=== PATIENT | female | born 1950 | race African-American/Black ===

== ENCOUNTER 2018-04-29 09:51 | Day surgery (SDC) | payer OTHER ==
[2018-03-31 15:01] VITALS: BMI 25.7
[2018-04-29 11:21] VITALS: TEMP 98
[2018-04-29 11:46] VITALS: PULSE 62
[2018-04-29 15:09] VITALS: BP 132/66
== END 2018-04-29 12:30 | disposition home or self-care (01) ==
LOC: JASU-ENDO 09:51
PROVIDERS: ATTEND Internal Medicine Gastroenterology
PROC: 0DJD8ZZ Inspection of Lower Intestinal Tract, Via Natural or Artificial Opening Endoscopic (ICD-10-PCS; principal; 2018-04-29 10:30)
DX: D64.9 Anemia, unspecified (principal); K64.8 Other hemorrhoids

== ENCOUNTER 2018-05-06 10:44 | Day surgery (SDC) | payer OTHER ==
[2018-05-06 11:44] VITALS: BMI 23.0
[2018-05-06 13:01] VITALS: TEMP 97.6
[2018-05-06 14:41] VITALS: BP 137/72; PULSE 65
--- NOTE | 2018-05-08 12:37 | PATH ---
Surgical Pathology Report Patient Name: [facility] KEYES [facility]. Rec. #: [id number] /Age/Gender: 1950 (Age: 67) / F Account: [id number] Location: [facility]-ENDOSCOPY Taken: 05/06/2018 Received: 05/07/2018 Reported: 05/08/2018 Physicians: Cornelio Abdi D.O. Specimen(s) Received A: BX SECOND PORTION DUODENUM B: BX DUODENUM AND DUODENAL BULB C: BX SUBMUCOSAL NODULE FUNDUS D: BX GE JUNCTION BARRETTS Clinical History Anemia Postoperative diagnosis: Duodenal nodule, gastric nodule Final Diagnosis A. DUODENUM, SECOND PORTION, NODULE, BIOPSY: POLYPOID DUODENAL MUCOSA WITH MILD ACUTE AND CHRONIC DUODENITIS AND FOCAL LYMPHANGIECTASIA. B. DUODENUM AND DUODENAL BULB, BIOPSY: DUODENAL MUCOSA WITHOUT SIGNIFICANT PATHOLOGIC FINDINGS. C. FUNDUS, SUBMUCOSAL NODULE, BIOPSY: GASTRIC MUCOSA WITH SEVERE CHRONIC ACTIVE GASTRITIS. IMMUNOHISTOCHEMICAL STAIN FOR H. PYLORI IS POSITIVE (MANY). NO SUBMUCOSA IDENTIFIED. D. GE JUNCTION, YEPEZ'S, BIOPSY: SQUAMOCOLUMNAR MUCOSA WITH MODERATE ACUTE AND CHRONIC INFLAMMATION AND CHANGES OF SEVERE REFLUX ESOPHAGITIS. NO INTESTINAL METAPLASIA OR DYSPLASIA IDENTIFIED. Electronically Signed Winifred Ortiz M.D. Gross Description A. Received in formalin, labeled "biopsy nodule second portion of duodenum" are 3 solano, irregular portions of soft tissue ranging from 0.2-0.4 cm. in greatest dimension. The specimens are submitted in toto in one cassette. B. Received in formalin, labeled "biopsy duodenum and duodenal bulb" are 3 solano, irregular portions of soft tissue ranging from 0.1-0.2 cm. in greatest dimension. The specimens are submitted in toto in one cassette. C. Received in formalin, labeled "biopsy submucosal nodule fundus" is a solano, irregular portion of soft tissue measuring 0.7 cm. in greatest dimension. The specimen is submitted in toto in one cassette. D. Received in formalin, labeled "biopsy GE junction Yepez's" are 2 solano, irregular portions of soft tissue measuring 0.2 and 0.3 cm. in greatest dimension. The specimens are submitted in toto in one cassette. 05/07/201805/07/2018
== END 2018-05-06 14:15 | disposition home or self-care (01) ==
LOC: JASU-ENDO 10:44
PROVIDERS: ATTEND Internal Medicine Gastroenterology
PROC: 0DB68ZX Excision of Stomach, Via Natural or Artificial Opening Endoscopic, Diagnostic (ICD-10-PCS; 2018-05-06)
PROC: 0DB48ZX Excision of Esophagogastric Junction, Via Natural or Artificial Opening Endoscopic, Diagnostic (ICD-10-PCS; 2018-05-06)
PROC: 0DB98ZX Excision of Duodenum, Via Natural or Artificial Opening Endoscopic, Diagnostic (ICD-10-PCS; principal; 2018-05-06 12:00)
DX: D64.9 Anemia, unspecified (principal); K22.70 Barrett's esophagus without dysplasia; I89.0 Lymphedema, not elsewhere classified; K29.00 Acute gastritis without bleeding; K21.0 Gastro-esophageal reflux disease with esophagitis
CPT/HCPCS: 88305-TC; 88342-TC

== ENCOUNTER 2022-10-15 08:00 | Day surgery (SDC) | payer OTHER ==
[2022-10-09 15:47] VITALS: BMI 26.2
[2022-10-15] MEDS ORDERED: PROPOFOL 60 ML ONE (09:33)
[2022-10-15 13:50] VITALS: RESP 17; TEMP 97
[2022-10-15 14:03] VITALS: BP 126/65; PULSE 65
== END 2022-10-15 11:30 | disposition home or self-care (01) ==
LOC: FASU-ENDO 08:00
PROVIDERS: ATTEND Internal Medicine Gastroenterology
PROC: 0DBN8ZX Excision of Sigmoid Colon, Via Natural or Artificial Opening Endoscopic, Diagnostic (ICD-10-PCS; principal; 2022-10-15 09:36)
DX: Z12.11 Encounter for screening for malignant neoplasm of colon (principal); K63.5 Polyp of colon
CPT/HCPCS: 82962; 88305-TC